=== PATIENT | female | born 1955 | race Caucasian/White ===

== ENCOUNTER → 2017-08-11 | Outpatient (CLI) | payer BC ==
--- NOTE | 2017-08-12 21:10 | HM ---
Date Performed: 08/11/2017 Time Performed: 09:17:00 HOOKUP DATE: 08/11/17 09:17:00 AM Mon ANALYSIS START TIME: 08/11/2017 9:22:00 AM ANALYSIS END TIME: 08/12/2017 9:26:00 AM PATIENT AGE: 62 PATIENT HEIGHT PATIENT WEIGHT DRUG LIST PATIENT DIAGNOSIS: cerebral infarction/embolism TEST NARRATIVE: The patient's average heart rate was 62 BPM. No episodes of tachycardia wer e noted. Heart rates less than 50 BPM were noted 24% of the time. No pauses exceeding 2.0 second s were noted. 6 ventricular ectopics, which represented < 1% of the total beat count, were noted. The highest ventricular ectopic frequency occurred from 11:00 AM to 12:00 PM Mon. During this time 2 VE(s) occurred. Ventricular ectopics were observed as 6 isolated beat(s) only. No couplets or ru ns were noted. 28 supraventricular ectopics, which represented < 1% of the total beat count, were noted. The highest supraventricular ectopic frequency occurred from 11:00 PM to 12:00 AM Tue. Azeb blevins this time 11 SVE(s) occurred. No episodes of ST depression (defined as -1.0 mm or more) were n oted in channel 1. No episodes of ST depression (defined as -1.0 mm or more) were noted in channel 2 . No episodes of ST depression (defined as -1.0 mm or more) were noted in channel 3. no diary return ed TEST INTERPRETATION: AGREE WITH INTERPRATATION. THE PREDOMINANT RHYTHM WAS SINUS. CONCLUSION: NO AL HOLTER MONITOR. Signed by : Frances Whitney
== END ==
LOC: HCAV 08:40
PROVIDERS: ATTEND Psychiatry & Neurology Neurology
DX: I63.40 Cerebral infarction due to embolism of unspecified cerebral artery (principal)
CPT/HCPCS: 93225; 93226

== ENCOUNTER 2017-09-26 07:44 | Day surgery (SDC) | payer BC ==
[2017-09-26] MEDS ORDERED: NAPR500T2 PO (08:37)
[2017-09-26] MEDS ORDERED: TRAD5TAB PO (08:37)
[2017-09-26] MEDS ORDERED: VITA100021 SL (08:37)
[2017-09-26] MEDS ORDERED: METF-382 PO (08:37)
[2017-09-26] MEDS ORDERED: CHOL100025 CHEW (08:37)
[2017-09-26] MEDS ORDERED: ASPI-183 PO (08:37)
[2017-09-26] MEDS ORDERED: DAPA1TAB PO (08:37)
[2017-09-26] MEDS ORDERED: PRAV20TA2 PO (08:37)
[2017-09-26] MEDS ORDERED: CARI1TAB45 PO (08:37)
[2017-09-26] MEDS ORDERED: CHLORHEXIDINE GLUCONATE 2 % 1 PACK (2 CLOTHS) TOPICAL PRN (09:00)
[2017-09-26] MEDS ORDERED: POVIDONE IODINE 5% (ANTISEPSIS KIT) 4 APPLICATIONS EACH NARE PRN (09:00)
[2017-09-26] MEDS ORDERED: SODIUM CHLORID 0.9% 500 ML IV PRN (09:00)
[2017-09-26] MEDS ORDERED: METOPROLOL TARTRATE 25 MG TAB PO PRN (09:00)
[2017-09-26] MEDS ORDERED: LACTATED RINGER'S 1000 ML IV PRN (09:00)
[2017-09-26] MEDS ORDERED: PROPOFOL 200 MG/20 ML AMP ONE (10:06)
--- NOTE | 2017-09-26 14:09 | ECHRPT ---
Indication: CVA/TIA CONCLUSIONS Normal left ventricular size and wall thickness. The left ventricular systolic function is normal wi th an estimated ejection fraction in the range of 60-65%. Normal wall motion. A patent foramen ovale is present with a [id number] shunt demonstrated by color flow Doppler interrogation. No valvular abnormalities are identified. BP: / HR: Rhythm: Technical Quality: Medications Complications Proc. Components FINDINGS LEFT VENTRICLE Normal left ventricular size and wall thickness. The left ventricular systolic function is normal wi th an estimated ejection fraction in the range of 60-65%. Normal wall motion. RIGHT VENTRICLE Normal right ventricular size and systolic function. LEFT ATRIUM The left atrial size is normal. RIGHT ATRIUM The right atrial size is normal. ATRIAL SEPTUM A patent foramen ovale is present with a [id number] shunt demonstrated by color flow Doppler interrogation. AORTA The aortic root and proximal ascending aorta are normal in size on limited imaging. MITRAL VALVE Structurally normal mitral valve. No mitral valve stenosis or regurgitation. AORTIC VALVE Trileaflet aortic valve. No aortic valve stenosis or regurgitation. TRICUSPID VALVE Structurally normal tricuspid valve. No tricuspid valve stenosis or regurgitation. VESSELS The inferior vena cava is normal in size. PULMONARY VALVE The pulmonary valve is not well visualized. PERICADIUM No pericardial effusion. Narendra Cazares MD (Electronically Signed) Final Date:26 September 2017 14:07
--- NOTE | 2017-09-27 09:30 | EKG ---
Date Performed: 09/26/2017 Time Performed: 08:43:34 PTAGE: 62 years EKG: Sinus bradycardia. Possible left anterior fascicular block Possible inferior infarct - age undetermined Possible anterior infarct - age undetermined Lateral T wave changes may be due to myocar dial ischemia Low QRS voltages in precordial leads Abnormal ECG NO PREVIOUS TRACING DOCTOR: Clark Rodriguez Interpretating Date/Time 09/27/2017 09:29:48
== END 2017-09-26 11:40 | disposition home or self-care (01) ==
LOC: HDIC 07:44 → HDOC 07:44
PROVIDERS: ATTEND Internal Medicine Cardiovascular Disease
DX: I63.9 Cerebral infarction, unspecified (principal); Q21.1 Atrial septal defect; I10 Essential (primary) hypertension; E78.5 Hyperlipidemia, unspecified
CPT/HCPCS: 93005; 93312; 93320; 93325